=== PATIENT | female | born 1990 | race African-American/Black ===

== ENCOUNTER 2018-08-02 03:52 | Observation (INO) | payer SELFPAY ==
[~2018-08-02] VITALS: Ht 163 cm; Wt 65.3 kg
[2018-08-02] MEDS ORDERED: LR 1,000 ML IV SCH (05:00)
== END 2018-08-02 05:50 | disposition short-term general hospital (02) ==
LOC: SPU 03:52
PROVIDERS: ADMIT Obstetrics & Gynecology; ATTEND Obstetrics & Gynecology
DX: O36.8130 Decreased fetal movements, third trimester, not applicable or unspecified (principal); Z3A.35 35 weeks gestation of pregnancy
CPT/HCPCS: G0378; J7120